=== PATIENT | female | born 1990 | race African-American/Black ===

== ENCOUNTER 2020-03-17 20:45 | Emergency (ER) | payer MEDICAID ==
[2020-03-17] MEDS ORDERED: GI Cocktail Oral Solution 30 ML PO ONE (21:15)
[2020-03-17] MEDS ORDERED: Ketorolac 30 MG/ML SDV IM ONE (21:15)
[2020-03-17 21:55] LABS: CHLORIDE,CL 103 mmol/L (98-107); SODIUM,NA 140 mmol/L (136-145)
--- NOTE | 2020-03-17 22:05 | EDM.PDOC ---
ED HPI GENERAL MEDICAL PROBLEM - General Chief Complaint: Chest Pain Stated Complaint: Chest pain, epigastric pain Time Seen by Provider: 03/17/20 21:35 Source of Information: Reports: Patient History Limitations: Reports: No Limitations - History of Present Illness INITIAL COMMENTS - FREE TEXT/NARRATIVE: Pt. presents to ER with complaints or respirophasic chest and epigastric pain that started this evening. She states that she has not been experiencing any fever or chills. No nausea or vomiting. She states that she ate thai fries tonight. She states that the discomfort in her chest and abdomen are worse with palpation, movement, deep breathing, and cough. Denies any fever or chills. No nausea, vomiting, or diarrhea. Denies any lightheadedness, palpitations. She states that the discomfort is worse when she takes a deep breath. She does not have a PCP. Pt. states that the discomfort started in her epigastrium first and then moved up into her chest. Onset: Today Location: Reports: Chest Quality: Reports: Burning Associated Symptoms: Reports: Chest Pain. Denies: Cough, Diaphoresis, Fever/Chills, Malaise, Nausea/Vomiting, Shortness of Breath, Syncope mid sternal chest Pain Score (Numeric/FACES): 6 epigastric Pain Score (Numeric/FACES): 6 - Related Data Allergies Allergy/AdvReac Type Severity Reaction Status Date / Time No Known Allergies Allergy Verified 03/17/20 21:25 Home Meds: Home Meds . [No Known Home Meds] 03/17/20 [History] Past Medical History - Past Health History Medical/Surgical History: Denies Medical/Surgical History Social & Family History - Tobacco Use Tobacco Use Status *Q: Unknown Ever Used Tobacco ED ROS GENERAL - Review of Systems Review Of Systems: See Below Constitutional: Reports: No Symptoms HEENT: Reports: No Symptoms Respiratory: Reports: Pleuritic Chest Pain Cardiovascular: Reports: No Symptoms Endocrine: Reports: No Symptoms GI/Abdominal: Reports: Abdominal Pain (epigastic pain). Denies: Hematemesis, Hematochezia, Melena, Nausea : Reports: No Symptoms Musculoskeletal: Reports: No Symptoms Skin: Reports: No Symptoms Neurological: Reports: No Symptoms Psychiatric: Reports: No Symptoms Hematologic/Lymphatic: Reports: No Symptoms Immunologic: Reports: No Symptoms ED EXAM, GENERAL - Physical Exam Exam: See Below Exam Limited By: No Limitations General Appearance: Alert, WD/WN, Mild Distress Throat/Mouth: Normal Inspection, Normal Lips, Normal Oropharynx, Normal Voice, No Airway Compromise Head: Atraumatic, Normocephalic Neck: Normal Inspection, Supple, Non-Tender, Full Range of Motion Respiratory/Chest: No Respiratory Distress, Lungs Clear, Normal Breath Sounds, No Accessory Muscle Use, Chest Non-Tender Cardiovascular: Normal Peripheral Pulses, Regular Rate, Rhythm, No Edema, No JVD, No Murmur Peripheral Pulses: 4+: Radial (L) GI/Abdominal: Soft, Non-Tender, No Distention, No Mass (Female) Exam: Deferred Rectal (Female) Exam: Deferred Extremities: Normal Inspection, Normal Range of Motion, Non-Tender, No Pedal Edema, Normal Capillary Refill Neurological: Alert, Oriented, CN II-XII Intact, Normal Cognition, Normal Reflexes Psychiatric: Normal Affect, Normal Mood Skin Exam: Warm, Dry, Intact, Normal Color, No Rash Course - Vital Signs Last Recorded V/S: Last Vital Signs Temp 36.6 C 03/17/20 21:29 Pulse 92 03/17/20 21:29 Resp 18 03/17/20 21:29 BP 127/77 03/17/20 21:29 Pulse Ox 96 03/17/20 21:29 - Orders/Labs/Meds Orders: Active Orders 24 hr Category Date Time Status Chest 2V [CR] Stat Exams 03/17/20 21:14 Taken Labs: Laboratory Tests 03/17/20 03/17/20 03/17/20 Range/Units 21:28 21:28 21:28 WBC 11.9 H (4.0-10.0) x10^3/uL RBC 4.78 (4.00-5.50) x10^6/uL Hgb 12.6 (12.0-16.0) g/dL Hct 38.3 (33.0-47.0) % MCV 80.1 (78.0-93.0) fL MCH 26.4 (26.0-32.0) pg MCHC 32.9 (32.0-36.0) g/dL RDW Coeff of Melly 14.9 (10.0-15.0) % Plt Count 375 (130-400) x10^3/uL Neut % (Auto) 76.4 (50.0-80.0) % Lymph % (Auto) 15.2 L (25.0-50.0) % [place] % (Auto) 7.4 (2.0-11.0) % Eos % (Auto) 0.8 (0.0-4.0) % Baso % (Auto) 0.2 (0.2-1.2) % PT (9.9-12.5) SEC INR (2.0-3.5) D-Dimer, Quantitative 0.23 (<=0.58) mg/LFEU Sodium 140 (136-145) mmol/L Potassium 4.0 (3.5-5.1) mmol/L Chloride 103 (98-107) mmol/L Carbon Dioxide 30 (21-32) mmol/L Anion Gap 11.0 (5-15) mmol/L BUN 8 (7-18) mg/dL Creatinine 0.9 (0.55-1.02) mg/dL Est Cr Clr Drug Dosing 76.30 mL/min Estimated GFR (MDRD) > 60 Glucose 99 (74-106) mg/dL Calcium 8.8 (8.5-10.1) mg/dL Corrected Calcium 9.28 (8.5-10.1) mg/dL Total Bilirubin 0.5 (0.2-1.0) mg/dL AST 51 H (15-37) U/L ALT 38 (14-59) U/L Alkaline Phosphatase 112 (46-116) U/L POC Troponin I (0.00-0.08) ng/mL C-Reactive Protein 0.9 (<=0.9) mg/dL Total Protein 8.6 H (6.4-8.2) g/dL Albumin 3.4 (3.4-5.0) g/dL Globulin 5.2 Albumin/Globulin Ratio 0.65 Amylase 70 (25-115) U/L Lipase 96 (73-393) U/L 03/17/20 03/17/20 Range/Units 21:28 21:30 WBC (4.0-10.0) x10^3/uL RBC (4.00-5.50) x10^6/uL Hgb (12.0-16.0) g/dL Hct (33.0-47.0) % MCV (78.0-93.0) fL MCH (26.0-32.0) pg MCHC (32.0-36.0) g/dL RDW Coeff of Melly (10.0-15.0) % Plt Count (130-400) x10^3/uL Neut % (Auto) (50.0-80.0) % Lymph % (Auto) (25.0-50.0) % [place] % (Auto) (2.0-11.0) % Eos % (Auto) (0.0-4.0) % Baso % (Auto) (0.2-1.2) % PT 10.3 (9.9-12.5) SEC INR 0.9 L (2.0-3.5) D-Dimer, Quantitative (<=0.58) mg/LFEU Sodium (136-145) mmol/L Potassium (3.5-5.1) mmol/L Chloride (98-107) mmol/L Carbon Dioxide (21-32) mmol/L Anion Gap (5-15) mmol/L BUN (7-18) mg/dL Creatinine (0.55-1.02) mg/dL Est Cr Clr Drug Dosing mL/min Estimated GFR (MDRD) Glucose (74-106) mg/dL Calcium (8.5-10.1) mg/dL Corrected Calcium (8.5-10.1) mg/dL Total Bilirubin (0.2-1.0) mg/dL AST (15-37) U/L ALT (14-59) U/L Alkaline Phosphatase (46-116) U/L POC Troponin I 0.00 (0.00-0.08) ng/mL C-Reactive Protein (<=0.9) mg/dL Total Protein (6.4-8.2) g/dL Albumin (3.4-5.0) g/dL Globulin Albumin/Globulin Ratio Amylase (25-115) U/L Lipase (73-393) U/L Meds: Medications Discontinued Medications Generic Name Dose Route Start Last Admin Trade Name Freq PRN Reason Stop Dose Admin Al Hydroxide/Mg Hydroxide 30 ml 03/17/20 21:15 03/17/20 21:20 Gi Cocktail PO 03/17/20 21:16 30 ml ONETIME ONE Administration Ketorolac Tromethamine 30 mg 03/17/20:15 03/17/20 21:21 Toradol IM 03/17/20 21:16 30 mg ONETIME ONE Administration Omeprazole 20 mg 03/17/20 22:12 03/17/20 22:17 Omeprazole PO 03/17/20 22:13 20 mg ONETIME ONE Administration - Re-Assessments/Exams Free Text/Narrative Re-Assessment/Exam: Pt. was given a GI cocktail PO, toradol 30mg IM and reported near complete resolution of symptoms. Departure - Departure Time of Disposition: 23:00 Disposition: Home, Self-Care 01 Clinical Impression: Atypical chest pain, Gastroesophageal reflux disease - Discharge Information Instructions: Nonspecific Chest Pain, Adult, [id number], Gastroesophageal Reflux Disease, Adult, [id number] Referrals: PCP,None [Primary Care Provider] - Forms: ED Department Discharge Additional Instructions: Omeprazole 20 mg 1 tab daily if you are having discomfort. You may not need to take it, but I gave you a prescription if you need it. Establish care in one of the clinics and recheck in 7-10 days. Most likely cause of your discomfort is gastroesophageal reflux, but other causes include gallbladder. You may need a gallbladder ultrasound in the future if you are still having troubles. Sepsis Event Note (ED) - Evaluation Sepsis Screening Result: No Definite Risk - Focused Exam Vital Signs: Vital Signs Temp Pulse Resp BP Pulse Ox 03/17/20 21:29 36.6 C 92 18 127/77 96 - Problem List Review Problem List Initiated/Reviewed/Updated: Yes - My Orders Last 24 Hours: My Active Orders 03/17/20 21:14 Chest 2V [CR] Stat - Assessment/Plan Last 24 Hours: My Active Orders 03/17/20 21:14 Chest 2V [CR] Stat Plan: Omeprazole 20 mg 1 tab daily if you are having discomfort. You may not need to take it, but I gave you a prescription if you need it. Establish care in one of the clinics and recheck in 7-10 days. Most likely cause of your discomfort is gastroesophageal reflux, but other causes include gallbladder. You may need a gallbladder ultrasound in the future if you are still having troubles.
[2020-03-17] MEDS ORDERED: Omeprazole 20 MG Cap.CR PO ONE (22:12)
--- NOTE | 2020-03-18 07:52 | CR ---
[id number] RAD/RAD Chest PA And Lateral EXAM: FRONTAL AND LATERAL CHEST INDICATION: CHEST PAIN COMPARISON: None. DISCUSSION: Evaluation is somewhat limited by low lung volumes and body habitus. Mild bibasilar atelectasis. No infiltrates are identified. Normal heart size. IMPRESSION: 1. No acute findings. Conor Callejas MD 03/18/20 0751 Thank you for allowing us to participate in the care of your patient.
== END 2020-03-17 22:58 | disposition home or self-care (01) ==
LOC: VM.ED 20:45
DX: K21.9 Gastro-esophageal reflux disease without esophagitis (principal)
CPT/HCPCS: 36415; 71046; 80053; 82150; 83690; 84484; 85025; 85379; 85610; 86140; 93005; 96372; 99284; 99285-25; A9270-GY; J1885